=== PATIENT | male | born 1995 | race American Indian/Alaskan Native ===

== ENCOUNTER 2020-10-27 09:06 | Emergency (ER) | payer SELFPAY ==
[2020-10-27] MEDS ORDERED: SODIUM CHLORIDE 0.9% 1000 ML 1,000 ML IV ONE (09:35)
[2020-10-27] MEDS ORDERED: KETOROLAC 30 MG/1 ML INJ IV ONE (09:37)
--- NOTE | 2020-10-27 09:38 | Event Note ---
ED Screening Note Date of service: 10/27/20 Time: 09:38 ED Screening Note: Patient presents complaint of right upper quadrant abdominal pain since this morning. Reports associated nausea, vomiting and diarrhea. He denies similar pain in the past. He denies any abdominal surgeries. This initial assessment/diagnostic orders/clinical plan/treatment(s) is/are subject to change based on patients health status, clinical progression and re- assessment by fellow clinical providers in the ED. Further treatment and workup at subsequent clinical providers discretion. Patient/guardian urged not to elope from the ED as their condition may be serious if not clinically assessed and managed. Initial orders include: CBC, CMP, lipase, right upper quadrant abdominal ultrasound
[2020-10-27 10:20] LABS: Basophils % (Auto) 0.5 % (0.0-1.8); Eosinophils % (Auto) 0.6 % (0.0-4.3); Hematocrit 42.9 % (35.5-45.6); Lymphocytes # (Auto) 1.8 K/mm3 (1.2-5.4); Lymphocytes % (Auto) 23.9 % (13.4-35.0); Mean Corpuscular HGB Conc 33 % (32-34); Mean Corpuscular Volume 89 fl (84-94); Monocytes # (Auto) 0.6 K/mm3 (0.0-0.8); Monocytes % (Auto) 8.7 % (0.0-7.3); Platelet Count 164 K/mm3 (140-440); Red Blood Count 4.84 M/mm3 (3.65-5.03)
[2020-10-27 10:39] LABS: Alanine Aminotransferase 46 units/L (7-56); Albumin 4.3 g/dL (3.9-5); BUN/Creatinine Ratio 13; Blood Urea Nitrogen 13 mg/dL (9-20); Calcium 8.5 mg/dL (8.4-10.2); Hemolysis Index 2
[2020-10-27 10:41] LABS: Bilirubin,Direct < 0.2 mg/dL (0-0.2)
--- NOTE | 2020-10-27 10:46 | Ultrasound Report ---
LIMITED RUQ ABDOMINAL ULTRASOUND INDICATION: RUQ pain. COMPARISON: No relevant prior imaging study available. FINDINGS: Pancreas: Visualized portions show no significant abnormality. Abdominal Aorta: Normal size. IVC: No significant abnormality. Liver: The liver measures 17.6 cm in length. Diffusely echogenic parenchyma with a 5 cm hypoechoic a janeen in the left lobe which likely reflects fatty sparing. Normal hepatopedal blood flow in the main p ortal vein. Gallbladder: There is moderate cholelithiasis with no gallbladder wall thickening or pericholecystic fluid. Bile ducts: No significant abnormality. Common bile duct measures 3 mm. Right kidney: No significant abnormality visualized.. Free fluid: None. Additional Findings: None. IMPRESSION: 1. Hepatomegaly with diffusely echogenic appearance of the liver, most commonly seen with steatosis. 5 cm hypoechoic area in the left lobe most likely reflects fatty sparing. 2. Cholelithiasis without imaging findings of cholecystitis. Signer Name: Spike Gould MD Signed: 10/27/2020 10:42 AM Workstation Name: [id number]
--- NOTE | 2020-10-27 10:58 | Emergency Department Report ---
ED General Adult HPI - General Chief complaint: Abdominal Pain Stated complaint: ABD PAIN Time Seen by Provider: 10/27/20 09:34 Source: patient Mode of arrival: Ambulatory Limitations: No Limitations - History of Present Illness Initial comments: The patient presents to the emergency department with a chief complaint of right upper quadrant abdominal pain that started at 5 AM this morning. Patient states the pain radiated to his back and he has some nausea vomiting with it as well. Patient denies chest pain, shortness breath, or headache. -: Sudden Location: abdomen Radiation: back Severity scale (0 -10): 10 Quality: sharp Consistency: constant Improves with: none Worsens with: none Associated Symptoms: nausea/vomiting Treatments Prior to Arrival: none - Related Data Previous Rx's Medication Instructions Recorded Last Taken Type HYDROcodone/APAP 10-325 [[place] 1 each PO Q6HR PRN #24 tablet 10/27/20 Unknown Rx 10/325] Ondansetron [Zofran Odt] 4 mg PO Q4HR PRN #20 tab.rapdis 10/27/20 Unknown Rx predniSONE [Deltasone] 20 mg PO DAILY #15 tablet 10/27/20 Unknown Rx Allergies Allergy/AdvReac Type Severity Reaction Status Date / Time chocolate flavor Allergy Anaphylaxis Verified 10/27/20 09:22 ED Review of Systems ROS: Stated complaint: ABD PAIN Other details as noted in HPI Comment: All other systems reviewed and negative Constitutional: denies: chills, fever Eyes: denies: eye pain, eye discharge, vision change ENT: denies: ear pain, throat pain Respiratory: denies: cough, shortness of breath, wheezing Cardiovascular: denies: chest pain, palpitations Endocrine: no symptoms reported Gastrointestinal: abdominal pain. denies: nausea, diarrhea Genitourinary: denies: urgency, dysuria Musculoskeletal: denies: back pain, joint swelling, arthralgia Skin: denies: rash, lesions Neurological: denies: headache, weakness, paresthesias Psychiatric: denies: anxiety, depression Hematological/Lymphatic: denies: easy bleeding, easy bruising ED Past Medical Hx - Past Medical History Previous Medical History?: No - Surgical History Past Surgical History?: No - Social History Smoking Status: Never Smoker - Medications Home Medications: Home Medications Medication Instructions Recorded Confirmed Last Taken Type HYDROcodone/APAP 10-325 [[place] 1 each PO Q6HR PRN #24 tablet 10/27/20 Unknown Rx 10/325] Ondansetron [Zofran Odt] 4 mg PO Q4HR PRN #20 tab.rapdis 10/27/20 Unknown Rx predniSONE [Deltasone] 20 mg PO DAILY #15 tablet 10/27/20 Unknown Rx ED Physical Exam - General Limitations: No Limitations General appearance: alert, in no apparent distress - Head Head exam: Present: atraumatic, normocephalic - Eye Eye exam: Present: normal appearance, PERRL - ENT ENT exam: Present: mucous membranes moist - Neck Neck exam: Present: normal inspection - Respiratory Respiratory exam: Present: normal lung sounds bilaterally. Absent: respiratory distress - Cardiovascular Cardiovascular Exam: Present: regular rate, normal rhythm. Absent: systolic murmur, diastolic murmur, rubs, gallop - GI/Abdominal GI/Abdominal exam: Present: soft, tenderness (TTP RUQ), normal bowel sounds. Absent: distended - Rectal Rectal exam: Present: deferred - Extremities Exam Extremities exam: Present: normal inspection - Back Exam Back exam: Present: normal inspection - Neurological Exam Neurological exam: Present: alert, oriented X3, CN II-XII intact. Absent: motor sensory deficit - Psychiatric Psychiatric exam: Present: normal affect, normal mood - Skin Skin exam: Present: warm, dry, intact, normal color. Absent: rash ED Course Vital Signs 10/27/20 10/27/20 10/27/20 09:22 10:15 10:37 Temperature 98.0 F Pulse Rate 68 64 Respiratory 20 18 18 Rate Blood Pressure 153/79 Blood Pressure 135/49 [Right] O2 Sat by Pulse 97 98 Oximetry ED Medical Decision Making - Lab Data Result diagrams: 10/27/20 09:59 10/27/20 09:59 Critical care attestation.: If time is entered above; I have spent that time in minutes in the direct care of this critically ill patient, excluding procedure time. ED Disposition Clinical Impression: Cholelithiasis, Fatty liver Disposition: DC-01 TO HOME OR SELFCARE Is pt being admited?: No Does the pt Need Aspirin: No Condition: Stable Instructions: Cholelithiasis, Fatty Liver Disease Additional Instructions: Return if worse Prescriptions: predniSONE [Deltasone] 20 mg PO DAILY #15 tablet HYDROcodone/APAP 10-325 [[place] 10/325] 1 each PO Q6HR PRN #24 tablet PRN Reason: Pain Ondansetron [Zofran Odt] 4 mg PO Q4HR PRN #20 tab.rapdis PRN Reason: Nausea Referrals: PRIMARY CARE,MD [Primary Care Provider] - 3-5 Days RENNY DIAS DO [Staff Physician] - 3-5 Days
[2020-10-27 11:26] VITALS: BP 121/74
== END 2020-10-27 11:26 | disposition home or self-care (01) ==
LOC: ED 09:06
DX: K80.20 Calculus of gallbladder without cholecystitis without obstruction (principal); K76.0 Fatty (change of) liver, not elsewhere classified; Z79.899 Other long term (current) drug therapy; Z91.018 Allergy to other foods
CPT/HCPCS: 36415; 76705; 80048; 80076; 83690; 85025; 96361; 96374; 99284; J1885; J7030